=== PATIENT | female | born 1975 | race Caucasian/White ===

== ENCOUNTER 2017-04-27 10:15 | Day surgery (SDC) | payer OTHER ==
[~2017-04-27] VITALS: Ht 160 cm; Wt 73.4 kg
[2017-04-27 10:53] VITALS: Ht 160 cm; Wt 73.4 kg
[2017-04-27] MEDS ORDERED: CITA10TA84 PO (11:05)
--- NOTE | 2017-04-27 12:02 | OPPN ---
Date/Time of Note Date/Time of Note DATE: 04/27/17 TIME: 12:00 Operative Report Preoperative Diagnosis Abdominal pain Chronic heartburn Change in bowel habit Postoperative Diagnosis Gastroesophageal reflux disease Gastritis with erosions Internal hemorrhoids Operation/Procedure Performed Esophagogastroduodenoscopy and biopsy Colonoscopy Provider: ABDON HUDDLESTON MD Anesthesia Type: moderate sedation Estimated blood loss: none Transfusion Required: no Specimens Gastric mucosal biopsy Grafts/Implants: none Complications: no ABDON HUDDLESTON MD Apr 27, 2017 12:02
[2017-04-27] MEDS ORDERED: MIDAZOLAM 1 MG/ML 2 ML INJ ONE ×2 (15:10)
[2017-04-27] MEDS ORDERED: FENTAnyl 50 MCG/ML VIAL ONE (15:10)
--- NOTE | 2017-04-27 15:22 | GILP ---
DATE OF PROCEDURE: 04/27/2017 PROCEDURES PERFORMED: 1. Esophagogastroduodenoscopy and biopsy. 2. Colonoscopy. SURGEON: Tessa Bellamy MD PREOPERATIVE DIAGNOSES: 1. Chronic heartburn. 2. Abdominal pain. 3. Change in bowel habits. POSTOPERATIVE DIAGNOSES: 1. Gastroesophageal reflux disease. 2. Gastritis with erosions and gastric mucosal biopsies were taken for Helicobacter pylori test. 3. Colonoscopy all the way to the cecum. 4. Internal hemorrhoids. INDICATION: Ms. Darshana Mccarthy is a 42-year-old female patient who had upper abdominal pain and pain in the left lower quadrant. She also had chronic heartburn not responding to therapy. She noticed change in the bowel habits. So the patient was scheduled for endoscopy and colonoscopy for further evaluation. The procedures and possible complications were well explained to the patient. She understood and consented to the procedures. DESCRIPTION OF PROCEDURE: Under influence of fentanyl and Versed, the gastroscope was carefully introduced into the esophagus under direct vision it was advanced to the stomach, into the pylorus, into the duodenal bulb, and descending duodenum. Findings esophagus, the patient had gastroesophageal reflux disease. Stomach, she had gastritis with erosions. Gastric mucosal biopsies were taken for Helicobacter pylori test. Duodenum was normal. The colonoscope was carefully introduced in the rectum. Under direct vision it was advanced all the way to the cecum. Findings, the patient had internal hemorrhoids. No colitis or neoplasm was identified. She tolerated the procedures very well, and there was no complication from the procedures. At the end of procedure she was awake with stable vital signs and she was discharged home in care of her family. IMPRESSION: Please see postop diagnoses. PLAN: 1. Continue omeprazole. 2. Add Zantac 300 mg p.o. q.h.s. 3. Bentyl 10 mg p.o. t.i.d. p.r.n. for pain. 4. Await Helicobacter pylori test report. Dictated By: MD JOSÉ LUIS Bell/nisa/anthony /Document#: [id number]
== END 2017-04-27 13:26 | disposition home or self-care (01) ==
LOC: GIL 10:15
PROVIDERS: ATTEND Internal Medicine Gastroenterology
DX: R19.4 Change in bowel habit (principal); K64.8 Other hemorrhoids; K21.9 Gastro-esophageal reflux disease without esophagitis; K29.60 Other gastritis without bleeding
CPT/HCPCS: 43239; 45378; 84703; 87081; J2250; J3010; Z7610